=== PATIENT | male | born 1965 | race American Indian/Alaskan Native ===

== ENCOUNTER 2017-03-07 21:47 | Emergency (ER) | payer MEDICARE ==
[2017-03-08] MEDS ORDERED: CATAPRES PO ONE (06:55)
--- NOTE | 2017-03-08 07:03 | Emergency Department Report ---
HPI - General Chief Complaint: High BP Time Seen by Provider: 03/08/17 06:46 - HPI HPI: Room 25 The patient is a 51-year-old male presenting with a chief complaint of hypertension. The patient is currently under [facility]. The patient was found to be hypertensive at 16:30 yesterday (203/139). Patient was given clonidine and eventually transported to the ED for further evaluation. Patient admits to occasional headaches but none currently. The patient states he was on blood pressure medication in the past but has not been able to get it Location: Head, see above Duration: [See above] Quality: Hypertension Severity: 203/139 Modifying factors: [see above] Context: [see above] Mode of transportation: [not driving] ED Past Medical Hx - Past Medical History Previous Medical History?: Yes Hx CVA: Yes Hx Psychiatric Treatment: Yes (paranoid ideations, psychosis) - Surgical History Past Surgical History?: No - Family History Family history: no significant - Social History Smoking Status: Never Smoker Substance Use Type: None (denies illicit drug use), Alcohol (occasional) - Medications Home Medications: Home Medications Medication Instructions Recorded Confirmed Last Taken Type amLODIPine [Norvasc] 5 mg PO DAILY #90 tab 03/08/17 Unknown Rx ED Review of Systems ROS: Stated complaint: ELEVATED BP Other details as noted in HPI Neurological: headache Physical Exam - Physical Exam Vital Signs: Vital Signs 03/07/17 22:27 Temperature 98.2 F Pulse Rate 77 Blood Pressure 172/118 O2 Sat by Pulse 98 Oximetry Physical Exam: GENERAL: The patient is well-developed well-nourished male lying on stretcher not appearing to be in acute distress. [] HEENT: Normocephalic. Atraumatic. Extraocular motions are intact. Patient has moist mucous membranes. NECK: Supple. Trachea midline CHEST/LUNGS: Clear to auscultation. There is no respiratory distress noted. HEART/CARDIOVASCULAR: Regular. There is no tachycardia. There is no gallop rub or murmur. ABDOMEN: Abdomen is soft, nontender. Patient has normal bowel sounds. There is no abdominal distention. SKIN: There is no rash. There is no edema. There is no diaphoresis. NEURO: The patient is awake, alert, and oriented. The patient is cooperative. The patient has no focal neurologic deficits. The patient has normal speech. Cranial nerves II through XII grossly intact, no drift, network planner is 5+/5 bilaterally. Normal sensation throughout. Moves all extremities well MUSCULOSKELETAL: There is no evidence of acute injury. ED Course Vital Signs 03/07/17 22:27 Temperature 98.2 F Pulse Rate 77 Blood Pressure 172/118 O2 Sat by Pulse 98 Oximetry - Consultations Consultation #1: 03/08/17 09:41 Nephrology paged 03/08/17 09:[address] Kemp- states creatinine can be followed up as an outpatient ED Medical Decision Making - Lab Data Result diagrams: 03/08/17 07:13 03/08/17 07:13 Laboratory Tests 03/08/17 03/08/17 03/08/17 07:13 07:13 07:13 WBC 3.6 L RBC 5.05 H Hgb 13.1 Hct 41.6 MCV 82 L MCH 26 L MCHC 32 RDW 15.0 Plt Count 159 Lymph % (Auto) 15.3 [place] % (Auto) 12.0 H Eos % (Auto) 5.9 H Baso % (Auto) 1.1 Lymph # 0.6 L [place] # 0.4 Eos # 0.2 Baso # 0.0 Seg Neutrophils % 65.7 Seg Neutrophils # 2.4 PT 14.8 INR 1.10 APTT 27.3 Sodium 140 Potassium 4.2 Chloride 104.2 Carbon Dioxide 22 Anion Gap 18 BUN 32 H Creatinine 2.2 H Estimated GFR 38 BUN/Creatinine Ratio 15 Glucose 100 Calcium 9.3 Urine Color Urine Turbidity Urine pH Ur Specific [place] Urine Protein Urine Glucose (UA) Urine Ketones Urine Blood Urine Nitrite Urine Bilirubin Urine Urobilinogen Ur Leukocyte Esterase Urine WBC (Auto) Urine RBC (Auto) Urine Mucus 03/08/17 07:48 WBC RBC Hgb Hct MCV MCH MCHC RDW Plt Count Lymph % (Auto) [place] % (Auto) Eos % (Auto) Baso % (Auto) Lymph # [place] # Eos # Baso # Seg Neutrophils % Seg Neutrophils # PT INR APTT Sodium Potassium Chloride Carbon Dioxide Anion Gap BUN Creatinine Estimated GFR BUN/Creatinine Ratio Glucose Calcium Urine Color Colorless Urine Turbidity Clear Urine pH 7.0 Ur Specific [place] 1.006 Urine Protein 30 mg/dl Urine Glucose (UA) 50 Urine Ketones Neg Urine Blood Sm Urine Nitrite Neg Urine Bilirubin Neg Urine Urobilinogen < 2.0 Ur Leukocyte Esterase Neg Urine WBC (Auto) 1.0 Urine RBC (Auto) 3.0 Urine Mucus Few - Radiology Data Radiology results: report reviewed (CT head), image reviewed (CT head) CT HEAD WITHOUT CONTRAST INDICATION: Hypertension, headache. COMPARISON: None similar at this institution. FINDINGS: Noncontrast head CT demonstrates moderate periventricular white matter hypodensities, also extending into the centrum semiovale. Normal ventricles and sulci. No definite acute infarct, hemorrhage, mass effect or midline shift. No abnormal extra axial fluid collections. Normal posterior fossa with preserved basilar cisterns. Normal eye globes. Left frontoethmoid mucosal thickening. Clear remainder imaged paranasal sinuses and mastoid air cells. Slight rightward nasal septal bowing anteriorly. Right more than left external auditory canal debris may be directly visualized. Intact calvarium and scalp. Few radiopaque dental fillings. Cervical spondylosis. CONCLUSION: Microangiopathy, mild sinusitis and few other incidental findings without acute intracranial CT abnormality, as described. Please correlate. Thank you for the opportunity to participate in this patient's care. Transcribed By: RS Dictated By: MICHELLE CHACON MD Electronically Authenticated By: MICHELLE CHACON MD Signed Date/Time: 03/08/17726 DD/ 1 TD/TT: 03/08/17726 - Differential Diagnosis hypertension, ICH Critical care attestation.: If time is entered above; I have spent that time in minutes in the direct care of this critically ill patient, excluding procedure time. ED Disposition Clinical Impression: Hypertension, Renal insufficiency Disposition: [id number]/TX-65 PSY HOSP/PSY UNIT Is pt being admited?: No Does the pt Need Aspirin: No Condition: Stable Instructions: Hypertension (ED), Impaired Kidney Function (ED) Additional Instructions: Return to the emergency department immediately should you develop worsening symptoms, fever, inability to tolerate food or liquid or any other concerns. Prescriptions: amLODIPine [Norvasc] 5 mg PO DAILY #90 tab Referrals: SHARON BUCKLEY MD [Other] - 3-5 Days MURTAZA KEMP MD [Staff Physician] - [facility] (Dr. Kemp is a equipment engineering technician. Please follow up with him for further evaluation) Time of Disposition: 09:51
[2017-03-08 07:31] LABS: Basophils % (Auto) 1.1 % (0.0-1.8); Eosinophils % (Auto) 5.9 % (0.0-4.3); Hematocrit 41.6 % (35.5-45.6); Hemoglobin 13.1 gm/dl (11.8-15.2); Mean Corpuscular HGB Conc 32 % (32-34); Mean Corpuscular Volume 82 fl (84-94); Platelet Count 159 K/mm3 (140-440); Red Blood Count 5.05 M/mm3 (3.65-5.03); White Blood Count 3.6 K/mm3 (4.5-11.0)
--- NOTE | 2017-03-08 07:34 | Cat Scan Report ---
CT HEAD WITHOUT CONTRAST INDICATION: Hypertension, headache. COMPARISON: None similar at this institution. FINDINGS: Noncontrast head CT demonstrates moderate periventricular white matter hypodensities, also extending into the centrum semiovale. Normal ventricles and sulci. No definite acute infarct, hemorrhage, mass effect or midline shift. No abnormal extra axial fluid collections. Normal posterior fossa with preserved basilar cisterns. Normal eye globes. Left frontoethmoid mucosal thickening. Clear remainder imaged paranasal sinuses and mastoid air cells. Slight rightward nasal septal bowing anteriorly. Right more than left external auditory canal debris may be directly visualized. Intact calvarium and scalp. Few radiopaque dental fillings. Cervical spondylosis. CONCLUSION: Microangiopathy, mild sinusitis and few other incidental findings without acute intracranial CT abnormality, as described. Please correlate. Thank you for the opportunity to participate in this patient's care.
[2017-03-08 07:41] LABS: INR 1.1 (0.87-1.13)
[2017-03-08 07:42] LABS: Partial Thromboplastin Time 27.3 Sec. (24.2-36.6)
[2017-03-08 07:43] LABS: Mean Corpuscular Hemoglobin 26 pg (28-32)
[2017-03-08 08:15] LABS: Calcium 9.3 mg/dL (8.4-10.2); Chloride 104.2 mmol/L (98-107); Potassium 4.2 mmol/L (3.6-5.0)
[2017-03-08 08:23] LABS: Bilirubin,Urine NEG (Negative); Blood,Urine SM (Negative); Ketones,Urine NEG (Negative); Leukocyte Esterase,Urine NEG (Negative); Mucus,Urine FEW /HPF; Nitrite,Urine NEG (Negative); Urobilinogen,Urine < 2.0 mg/dL (<2.0)
[2017-03-08] MEDS ORDERED: APRESOLINE IV ONE (08:37)
[2017-03-08 09:30] VITALS: BP 160/99
== END 2017-03-08 10:06 ==
LOC: ED 21:47 → EEVIPCON 21:47 → ED 03-08 10:06
DX: I10 Essential (primary) hypertension (principal); N28.9 Disorder of kidney and ureter, unspecified; Z86.73 Personal history of transient ischemic attack (TIA), and cerebral infarction without residual deficits; F29 Unspecified psychosis not due to a substance or known physiological condition
CPT/HCPCS: 36415; 70450; 80048; 81001; 85025; 85610; 85730; 96374; 99284; J0360